=== PATIENT | female | born 1990 | race Hispanic/Latino ===

== ENCOUNTER 2017-06-07 15:03 | Outpatient (CLI) | payer MEDICAID ==
[2017-06-07] MEDS ORDERED: LACTATED RINGERS 1,000 ML IV ONE ×2 (15:19→16:36)
[2017-06-07] MEDS ORDERED: BRETHINE SUB-Q ONE ×2 (15:50→15:51)
[2017-06-07 15:54] VITALS: BP 122/61
[2017-06-07] MEDS ORDERED: VISTARIL PO ONE (16:15)
[2017-06-07 16:25] LABS: Bilirubin,Urine NEG (Negative); Blood,Urine NEG (Negative); Mucus,Urine FEW /HPF; Nitrite,Urine NEG (Negative); Protein,Urine <15 mg/dL mg/dL (Negative); Urobilinogen,Urine < 2.0 mg/dL (<2.0); WBC,Urine < 1.0 /HPF (0.0-6.0)
[2017-06-07 16:27] LABS: Color,Urine Yellow (Yellow)
[2017-06-07] MEDS ORDERED: TYLENOL PO ONE (16:36)
--- NOTE | 2017-06-07 20:15 | Ultrasound Report ---
FINAL REPORT PROCEDURE: US OB LIMITED TECHNIQUE: Real-time limited sonographic examination was performed for evaluation of placenta for each fetus with image documentation (1 or more fetuses). CPT 71466 HISTORY: r/o abruption COMPARISON: No prior studies are available for comparison. FINDINGS: A single intrauterine gestation is identified with cephalic presentation. heart rate is 153 beats per minute. Placenta is anterior with grade 1 maturity. There is no evidence of placenta previa or placental abruption. IMPRESSION: Single live intrauterine gestation with anterior placenta. No evidence of abruption.
--- NOTE | 2017-06-07 21:07 | Event Note ---
Date: 06/07/17 BPP 11/30, SVE remains closed. Dr. Le reviewed tracing - CAT 1. Ctx are now irregular and per nurses report, patient is hungry and tired, requesting to go home. Patient offered therapeutic rest in hospital but she would rather go home. Patient has appointment with [facility] tomorrow morning @ 9:15am. Labor precautions provided, patient will be d/c'd home to keep appointment tomorrow.
--- NOTE | 2017-06-07 21:31 | Ultrasound Report ---
FINAL REPORT PROCEDURE: US OB BPP WO NON-STRESS TECHNIQUE: Sonographic evaluation for breathing, movement, tone, and amniotic fluid volume was performed. CPT 61089 HISTORY: variable decels noted COMPARISON: No prior studies are available for comparison. FINDINGS: Amniotic fluid volume: Normal-score 2. At least one vertical pocket > 2 cm or more in vertical axis. breathing: Normal-score 2. movement: Normal-score 2. tone: Normal-score 2 Score: 8 of 8. heart rate is 157 beats per minute IMPRESSION: Normal biophysical profile.
== END 2017-06-07 21:20 | disposition home or self-care (01) ==
LOC: TRG 15:03
PROVIDERS: ATTEND Obstetrics & Gynecology
DX: O47.03 False labor before 37 completed weeks of gestation, third trimester (principal); Z3A.36 36 weeks gestation of pregnancy
CPT/HCPCS: 59025; 76815; 76819; 81001; 96360; 96361; 96372; J3105; J7120; Q0177